=== PATIENT | male | born 2000 | race Caucasian/White ===

== ENCOUNTER 2019-03-07 07:53 | Emergency (ER) | payer OTHER ==
[2019-03-07] MEDS ORDERED: Adacel (T-DAP) 0.5 ML SYRINGE ONE (08:07)
[2019-03-07 08:12] LABS: #Basophils 0.1 thou/uL (0.0-0.2); #Eosinphils 0.1 thou/uL (0.0-0.7); #Lymphocytes 1.8 thou/uL (1.20-3.40); #Monocytes 0.6 thou/uL (0.11-0.59); #Neutrophils 9.5 thou/uL (1.40-6.50); %Basophils 0.5 % (0.0-1.0); %Lymphocytes 14.5 % (28.0-48.0); %Monocytes 5.2 % (0.0-4.0); %Neutrophils 78.8 % (31.0-61.0); Hemoglobin 15.4 g/dL (14.0-18.0); Mean Corpuscular HGB CONC 33.3 g/dL (32.0-36.0); Mean Corpuscular Hemoglobin 30.3 pg (25.0-35.0); Platelet Count 257 thou/uL (130-400); RBC Distribution Width 12.3 % (11.5-14.5); Red Blood Cell (RBC) Count 5.06 mill/uL (4.00-5.20)
[2019-03-07 08:19] LABS: PTT 24.1 SEC (22.9-36.1); Prothrombin Time 13.7 SEC (12.0-14.7)
[2019-03-07 08:41] LABS: Acetaminophen Less than 6.0 mcg/mL (10.0-30.0); Alcohol 15 mg/dL (Less than 10); Salicylate Less than 8.0 mg/dL (15.0-30.0)
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
[2019-03-07 08:42] LABS: ALT (SGPT) 22 U/L (8-55); AST (SGOT) 29 U/L (5-34); Albumin 4.5 g/dL (3.5-5.0); Alkaline Phosphatase 80 U/L (Less than 750); Anion Gap 12 mmol/L (10-20); BUN (Urea Nitrogen) 22 mg/dL (8.9-20.6); Calc. Creatinine Clearance 0 mL/min (70-130); Calcium 9.6 mg/dL (7.8-10.44); Carbon Dioxide 28 mmol/L (22-29); Chloride 103 mmol/L (98-107); Estimated GFR-MDRD 79; Globulin 2.8 g/dL (2.4-3.5); Glucose 91 mg/dL (70-105); Lipase 19 U/L (8-78); Potassium 4.1 mmol/L (3.5-5.1); Protein, Total 7.3 g/dL (6.0-8.3); Sodium 139 mmol/L (136-145)
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
[2019-03-07 09:19] LABS: Bilirubin Negative (Negative); Blood, Urine Moderate (Negative); Clarity CLEAR (Clear); Glucose, Urine (Dipstick) Negative (Negative); Leukocyte Negative (Negative); Nitrite Negative (Negative); Protein, Urine (Dipstick) Negative (Neg-Trace); Specific Gravity, Urine 1.016 (1.002-1.036)
[2019-03-07 09:21] LABS: Bacteria/HPF None Seen HPF (None Seen); Hyaline Casts/LPF 7-10 HYALINE CAST LPF (0-3 Hyaline); Pathc Cast-AUWi Flag 0.81 (0-2.49); RBC/HPF 0-3 HPF (0-3); Squamous Epithelial 0-3 HPF (0-3); WBC/HPF 0-3 HPF (0-3)
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
[2019-03-07 09:34] LABS: Amphetamine Not Detected (NotDetected); Barbiturates Screen Not Detected (NotDetected); Benzodiazepine Screen Not Detected (NotDetected); Cocaine Metabolite Screen Not Detected (NotDetected); Medtox Control Line Valid? VALID (VALID); Medtox Reader # READER 1; Methadone Not Detected (NotDetected); Methamphetamine Not Detected (NotDetected); Opiate Screen Not Detected (NotDetected); Oxycodone Screen Not Detected (NotDetected); Phencyclidine (PCP) Not Detected (NotDetected); THC/Cannabinoid Screen Detected (NotDetected); Tricyclic Screen Not Detected (NotDetected)
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
[2019-03-07] MEDS ORDERED: ISOVUE-370 76%-LOCM 1 ML ONE (10:59)
[2019-03-07] MEDS ORDERED: Bacitracin Zinc 1 Packet ONE (11:25)
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
== END 2019-03-07 12:34 | disposition home or self-care (01) ==
LOC: ERS 07:53
DX: M54.2 Cervicalgia (principal); V47.5XXA Car driver injured in collision with fixed or stationary object in traffic accident, initial encounter
CPT/HCPCS: 70450; 71260; 72125; 72141; 74177; 80053; 80306; 80307; 81003; 81015; 83690; 85025; 85610; 85730; 90471; 90715; G0390; Q9966

== ENCOUNTER 2021-03-09 13:20 | Emergency (ER) | payer OTHER ==
[2021-03-09] MEDS ORDERED: Valproate Sodium 750 MG in Sodium Chloride 0.9% 100 ML IVPB SCH (15:30)
[2021-03-09] MEDS ORDERED: Divalproex Sodium 250 MG (DR) TAB ONE (16:02)
== END 2021-03-09 16:13 | disposition home or self-care (01) ==
LOC: ERS 13:20
DX: G40.909 Epilepsy, unspecified, not intractable, without status epilepticus (principal); F17.290 Nicotine dependence, other tobacco product, uncomplicated; Z79.899 Other long term (current) drug therapy
CPT/HCPCS: 99284; J3490

== ENCOUNTER 2022-04-03 17:33 | Emergency (ER) | payer OTHER, SELFPAY ==
[2022-04-03 19:08] LABS: Bacteria/HPF None Seen HPF (None Seen); Bilirubin Negative (Negative); Blood, Urine Negative (Negative); Clarity Clear (Clear); Glucose, Urine (Dipstick) Normal (Negative); Ketone, Urine Negative (Negative); Leukocyte 75 Leu/uL (Negative); Nitrite Negative (Negative); Protein, Urine (Dipstick) Negative (Neg-Trace); RBC/HPF None Seen HPF (0-3); Specific Gravity, Urine 1.022 (1.002-1.036); Squamous Epithelial 0-3 HPF (0-3); Urobilinogen Normal mg/dL (Less than 2); pH, Urine 5.5 (5.0-9.0)
[2022-04-03] MEDS ORDERED: cefTRIAXone\\ROCEPHIN 500 MG VIAL ONE (22:30)
[2022-04-05 12:40] LABS: Chlam.trachomatis by PCR,Urine DETECTED (NotDetected)
== END 2022-04-03 20:10 | disposition home or self-care (01) ==
LOC: ERS 17:33
DX: N45.1 Epididymitis (principal); G40.909 Epilepsy, unspecified, not intractable, without status epilepticus; F17.290 Nicotine dependence, other tobacco product, uncomplicated
CPT/HCPCS: 74177; 76870; 81003; 81015; 87491; 87591; 93976; 96374; J0696